=== PATIENT | female | born 2005 | race African-American/Black ===

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

== ENCOUNTER 2024-07-18 20:17 | Emergency (ER) | payer MEDICAID, OTHER ==
[2024-07-18 20:29] VITALS: TEMP 97.2; O2SAT 100
[2024-07-18 21:32] LABS: HCG URINE TEST NEGATIVE (NEGATIVE)
[2024-07-18 21:50] LABS: Absolute Neutrophil Ct (ANC) 6.92 x10^3/uL (1.56-6.13); BASOPHIL % 0.7 % (0.1-1.2); Basophil (Absolute #) 0.06 x10^3/uL (0.01-0.08); Eosinophil % 0.4 % (0.7-5.8); Eosinophil (Absolute #) 0.04 x10^3/uL (0.04-0.36); Hematocrit 38.8 % (34.1-44.9); Hemoglobin 12.8 g/dL (11.2-15.7); IMMATURE GRAN # 0.02 x10^3u/L (0.001-0.031); IMMATURE GRAN % 0.2 % (0.001-0.429); Lymphocytes % 18.6 % (19.3-51.7); Mean Cell Volume 76.8 fL (79.4-94.8); Mean Corpuscular Hemoglobin 25.3 pg (25.6-32.2); Mean Platelet Volume 10.8 fL (9.4-12.3); Monocyte (Absolute #) 0.38 x10^3/uL (0.24-0.86); Monocytes % 4.2 % (4.7-12.5); Neutrophil % 75.9 % (34.0-71.1); Platelet Count 222 x10^3/uL (182-369); Red Blood Count 5.05 x10^6/uL (3.93-5.22); Red Cell Distribution Width 12.6 % (11.7-14.4); White Blood Count 9.1 x10^3/uL (3.98-10.04)
[2024-07-18 21:57] LABS: Appearance Clear (Clear); Bacteria None Seen /HPF (None Seen); Bilirubin Negative (Negative); Blood Negative (Negative); Epithelial Cells Rare /HPF (None Seen); Glucose, Urine Negative (Negative); Ketones 80 (Negative); Leukocyte Esterase Small (Negative); Nitrite Negative (Negative); Ph 5.5 (4.6-8.0); Protein,Urine Dip Negative (Negative); RBC 0-2 /HPF (0-5); Specific Gravity <=1.005 (1.005-1.030); Urobilinogen 0.2 mg/dL (0.2)
[2024-07-18 22:04] LABS: ALBUMIN 4.6 g/dL (3.5-5.0); ANION GAP 21.5 MEQ/L (5-15); BILIRUBIN,TOTAL 1.1 mg/dL (0.2-1.3); Calcium 9.8 mg/dL (8.4-10.2); Creatinine 1 0.58 mg/dL (0.52-1.04); EST GLOMERULAR FILTRATION RATE 132.8 ML/MIN; Potassium 3.6 mmol/L (3.5-5.1); Total Protein 7.4 g/dL (6.3-8.2)
--- NOTE | 2024-07-18 22:36 | ERPHSYRPT ---
- History of Present Illness Time Seen by Provider: 07/18/24 20:30 Source: patient Exam Limitations: no limitations Patient Subjective Stated Complaint: pT. STATES, "I WENT TO THE BATHROOM AND GOT A LITTLE DIZZY, WHEN I STOOD UP I BLACKED OUT." Triage Nursing Assessment: PT. ARRIVES VIA EMS, SHE IS A&OX3, SKIN WARM AND DRY. RESP EVEN UNLABORED, ABLE TO MOVE ALL 4 EXTREMITIES. Physician History: Patient is a 19-year-old female history of type 1 diabetes, BMI of 28 presents to our ED for evaluation of a syncopal episode. Patient was at home. Patient reports she was standing up from the toilet became lightheaded and fell to the ground. Patient states she hit her head on the floor. No neck pain. Cervical spine cleared clinically. The episode was not associated with chest pain or shortness of breath. No nausea vomiting or diaphoresis. Patient denies a history of syncope. Patient reports a history of a murmur as a child and the previously mentioned history of type 1 diabetes and states she is otherwise healthy. Patient voices no other complaints or concerns at this time. Portions of this note were created with voice recognition technology. There may be grammatical, spelling, punctuation or sound alike errors Timing/Duration: today Severity: moderate Modifying Factors: Improves With: nothing Associated Symptoms: denies symptoms Allergies/Adverse Reactions: No Known Drug Allergies Allergy (Verified 12/18/23 08:18) Hx Tetanus, Diphtheria Vaccination/Date Given: No Hx Influenza Vaccination/Date Given: No Hx Pneumococcal Vaccination/Date Given: No Immunizations Up to Date: No Travel Risk - International Travel Have you traveled outside of the country in past 3 weeks: No - Emerging Infectious Disease Are you exhibiting symptoms associated with any current EIDs: No Symptoms: Abdominal Pain - Review of Systems Constitutional: No Symptoms, No Fever, No Chills Eyes: No Symptoms Ears, Nose, & Throat: No Symptoms Respiratory: No Symptoms, No Cough, No Dyspnea Cardiac: No Symptoms, No Chest Pain, No Edema, No Syncope Abdominal/Gastrointestinal: No Symptoms, No Abdominal Pain, No Nausea, No Vomiting, No Diarrhea Genitourinary Symptoms: No Symptoms, No Dysuria Musculoskeletal: No Symptoms, No Back Pain, No Neck Pain Skin: No Symptoms, No Rash Neurological: No Symptoms, No Dizziness, No Focal Weakness, No Sensory Changes Psychological: No Symptoms Endocrine: No Symptoms Hematologic/Lymphatic: No Symptoms Immunological/Allergic: No Symptoms All Other Systems: Reviewed and Negative - Past Medical History Pertinent Past Medical History: Yes Neurological History: No Pertinent History ENT History: No Pertinent History Cardiac History: No Pertinent History Respiratory History: No Pertinent History Endocrine Medical History: No Pertinent History Musculoskeletal History: No Pertinent History GI Medical History: No Pertinent History History: No Pertinent History Psycho-Social History: Attention Deficit Disorder, Bipolar Female Reproductive Disorders: No Pertinent History Other Medical History: DEPRESSION, DM - Past Surgical History Past Surgical History: No Neuro Surgical History: No Pertinent History Cardiac: No Pertinent History Respiratory: No Pertinent History Gastrointestinal: No Pertinent History Genitourinary: No Pertinent History Musculoskeletal: No Pertinent History Female Surgical History: No Pertinent History - Female History Hx Last Menstrual Period: Jul.01 Hx Now: No - Social History Smoking Status: Never smoker Exposure to second hand smoke: No Drug Use: none - Social Determinants of Health Will the patient participate in the screening: Yes Do you worry about a steady place to live?: No Do you have any problems with any of the following?: No known problems In the past 12 months,have you had to go without utilities?: No Transportation Issues: No Has anyone in your support network made you feel unsafe?: No Have you or anyone in your house had to go w/o enough food: No - Nursing Vital Signs Nursing Vital Signs: Initial Vital Signs Temperature 97.2 F 07/18/24 20:22 Pulse Rate 102 H 07/18/24 20:22 Respiratory Rate 18 07/18/24 20:22 Blood Pressure 138/82 07/18/24 20:22 O2 Sat by Pulse Oximetry 100 07/18/24 20:22 Pain Scale Pain Intensity 0 - Physical Exam General Appearance: no apparent distress, alert Eye Exam: PERRL/EOMI, eyes nml inspection Ears, Nose, Throat Exam: normal ENT inspection, TMs normal, pharynx normal, moist mucous membranes Neck Exam: normal inspection, non-tender, supple, full range of motion Respiratory Exam: normal breath sounds, lungs clear, No respiratory distress Cardiovascular Exam: regular rate/rhythm, normal heart sounds, normal peripheral pulses Gastrointestinal/Abdomen Exam: soft, normal bowel sounds, No tenderness, No mass Back Exam: normal inspection, normal range of motion, No CVA tenderness, No vertebral tenderness Extremity Exam: normal inspection, normal range of motion, pelvis stable Neurologic Exam: alert, oriented x 3, cooperative, normal mood/affect, nml cerebellar function, nml station & gait, sensation nml, No motor deficits Skin Exam: normal color, warm, dry, No rash Lymphatic Exam: No adenopathy SpO2 Interpretation: normal SpO2: 100 O2 Delivery: Room Air - Course Nursing assessment & vital signs reviewed: Yes EKG Interpreted by Me: RATE (82), Sinus Rhythm, Right [place] Deviation, NORMAL INTERVALS, NORMAL QRS Ordered Tests: Active Orders 24 hr Category Date Time Status [place] STAT Care 07/18/24 21:11 Active EKG-ER Only STAT Care 07/18/24 21:10 Active IV Insertion STAT Care 07/18/24 21:10 Active Pulse Oximetry (ED) STAT Care 07/18/24 21:10 Active HEAD WITHOUT CONTRAST [CT] Stat Exams 07/19/24 00:42 Completed CBC W DIFF Stat Lab 07/18/24 21:48 Completed CMP Stat Lab 07/18/24 21:48 Completed HCG QUALITATIVE, URINE Stat Lab 07/18/24 21:27 Completed TROPONIN Q4H Lab 07/18/24 21:48 Completed TROPONIN Q4H Lab 07/19/24 00:37 Completed TROPONIN Q4H Lab 07/19/24 03:17 Completed UA W/RFX UR CULTURE Stat Lab 07/18/24 21:17 Completed Holter Monitor ONCE RT 07/19/24 04:11 Active Medication Summary Generic Name Dose Route Start Last Admin Trade Name Freq PRN Reason Stop Dose Admin Sodium Chloride 1,000 mls @ 100 mls/hr 07/18/24 21:15 07/18/24 23:23 Sodium Chloride 0.9% 1000 Ml IV 08/17/24 21:14 100 mls/hr .Q10H LEANDRO Administration Discontinued Medications Generic Name Dose Route Start Last Admin Trade Name Freq PRN Reason Stop Dose Admin Aspirin 324 mg 07/19/24 00:45 07/19/24 00:58 Aspirin 81 Mg Tab.Chew PO 07/19/24 00:46 324 mg STAT ONE Administration Ceftriaxone Sodium 1 gm in 100 mls @ 200 mls/hr 07/18/24 22:48 07/18/24 23:24 Rocephin 1 Gm / 100 Ml Nacl IV 07/18/24 23:17 200 mls/hr STAT ONE 200 mls/hr Administration Ceftriaxone Sodium Confirm 07/18/24 23:19 Rocephin 1 Gm / 100 Ml Nacl Administered 07/18/24 23:20 Dose 1 gm in 100 mls @ ud IV .STK-MED ONE Lab/Rad Data: Laboratory Result Diagrams 07/18/24 21:48 07/18/24 21:48 Laboratory Results 07/19/24 07/19/24 07/18/24 Range/Units 03:17 00:37 21:48 WBC (3.98-10.04) x10^3/uL RBC (3.93-5.22) x10^6/uL Hgb (11.2-15.7) g/dL Hct (34.1-44.9) % MCV (79.4-94.8) fL MCH (25.6-32.2) pg MCHC (32.2-35.5) g/dL RDW (11.7-14.4) % Plt Count (182-369) x10^3/uL MPV (9.4-12.3) fL Gran % (34.0-71.1) % Immature Gran % (Auto) (0.001-0.429) % Nucleat RBC Rel Count (0.00-0.2) % Eos # (Auto) (0.04-0.36) x10^3/uL Immature Gran # (Auto) (0.001-0.031) x10^3u/L Absolute Lymphs (auto) (1.18-3.74) x10^3/uL Absolute Monos (auto) (0.24-0.86) x10^3/uL Absolute Nucleated RBC (0.00-0.012) x10^3u/L Lymphocytes % (19.3-51.7) % Monocytes % (4.7-12.5) % Eosinophils % (0.7-5.8) % Basophils % (0.1-1.2) % Absolute Granulocytes (1.56-6.13) x10^3/uL Basophils # (0.01-0.08) x10^3/uL Sodium (135-145) mmol/L Potassium (3.5-5.1) mmol/L Chloride (98-107) mmol/L Carbon Dioxide (22-30) mmol/L Anion Gap (5-15) MEQ/L BUN (7-17) mg/dL Creatinine (0.52-1.04) mg/dL Estimated GFR ML/MIN Glucose (74-106) mg/dL Calcium (8.4-10.2) mg/dL Total Bilirubin (0.2-1.3) mg/dL AST (14-36) U/L ALT (0-35) U/L Alkaline Phosphatase (38-126) U/L Troponin I < 0.012 0.014 < 0.012 (0.000-0.033) ng/mL Serum Total Protein (6.3-8.2) g/dL Albumin (3.5-5.0) g/dL Urine Color (Yellow) Urine Appearance (Clear) Urine pH (4.6-8.0) Ur Specific [place] (1.005-1.030) Urine Protein (Negative) Urine Glucose (UA) (Negative) mg/dL Urine Ketones (Negative) Urine Blood (Negative) Urine Nitrite (Negative) Urine Bilirubin (Negative) Urine Urobilinogen (0.2) mg/dL Ur Leukocyte Esterase (Negative) U Hyaline Cast (Auto) (0-2) /LPF Urine Microscopic RBC (0-5) /HPF Urine Microscopic WBC (0-5) /HPF Ur Epithelial Cells (None Seen) /HPF Urine Bacteria (None Seen) /HPF Urine Culture Reflexed (NO) Urine HCG, Qual (NEGATIVE) 07/18/24 07/18/24 07/18/24 Range/Units 21:48 21:48 21:27 WBC 9.1 (3.98-10.04) x10^3/uL RBC 5.05 (3.93-5.22) x10^6/uL Hgb 12.8 (11.2-15.7) g/dL Hct 38.8 (34.1-44.9) % MCV 76.8 L (79.4-94.8) fL MCH 25.3 L (25.6-32.2) pg MCHC 33.0 (32.2-35.5) g/dL RDW 12.6 (11.7-14.4) % Plt Count 222 (182-369) x10^3/uL MPV 10.8 (9.4-12.3) fL Gran % 75.9 H (34.0-71.1) % Immature Gran % (Auto) 0.2 (0.001-0.429) % Nucleat RBC Rel Count 0.0 (0.00-0.2) % Eos # (Auto) 0.04 (0.04-0.36) x10^3/uL Immature Gran # (Auto) 0.02 (0.001-0.031) x10^3u/L Absolute Lymphs (auto) 1.70 (1.18-3.74) x10^3/uL Absolute Monos (auto) 0.38 (0.24-0.86) x10^3/uL Absolute Nucleated RBC 0.00 (0.00-0.012) x10^3u/L Lymphocytes % 18.6 L (19.3-51.7) % Monocytes % 4.2 L (4.7-12.5) % Eosinophils % 0.4 L (0.7-5.8) % Basophils % 0.7 (0.1-1.2) % Absolute Granulocytes 6.92 H (1.56-6.13) x10^3/uL Basophils # 0.06 (0.01-0.08) x10^3/uL Sodium 140 (135-145) mmol/L Potassium 3.6 (3.5-5.1) mmol/L Chloride 104 (98-107) mmol/L Carbon Dioxide 17 L (22-30) mmol/L Anion Gap 21.5 H (5-15) MEQ/L BUN 7 (7-17) mg/dL Creatinine 0.58 (0.52-1.04) mg/dL Estimated GFR 132.8 ML/MIN Glucose 95 (74-106) mg/dL Calcium 9.8 (8.4-10.2) mg/dL Total Bilirubin 1.10 (0.2-1.3) mg/dL AST 23 (14-36) U/L ALT 17 (0-35) U/L Alkaline Phosphatase 64 (38-126) U/L Troponin I (0.000-0.033) ng/mL Serum Total Protein 7.4 (6.3-8.2) g/dL Albumin 4.6 (3.5-5.0) g/dL Urine Color (Yellow) Urine Appearance (Clear) Urine pH (4.6-8.0) Ur Specific [place] (1.005-1.030) Urine Protein (Negative) Urine Glucose (UA) (Negative) mg/dL Urine Ketones (Negative) Urine Blood (Negative) Urine Nitrite (Negative) Urine Bilirubin (Negative) Urine Urobilinogen (0.2) mg/dL Ur Leukocyte Esterase (Negative) U Hyaline Cast (Auto) (0-2) /LPF Urine Microscopic RBC (0-5) /HPF Urine Microscopic WBC (0-5) /HPF Ur Epithelial Cells (None Seen) /HPF Urine Bacteria (None Seen) /HPF Urine Culture Reflexed (NO) Urine HCG, Qual NEGATIVE (NEGATIVE) 07/18/24 Range/Units 21:17 WBC (3.98-10.04) x10^3/uL RBC (3.93-5.22) x10^6/uL Hgb (11.2-15.7) g/dL Hct (34.1-44.9) % MCV (79.4-94.8) fL MCH (25.6-32.2) pg MCHC (32.2-35.5) g/dL RDW (11.7-14.4) % Plt Count (182-369) x10^3/uL MPV (9.4-12.3) fL Gran % (34.0-71.1) % Immature Gran % (Auto) (0.001-0.429) % Nucleat RBC Rel Count (0.00-0.2) % Eos # (Auto) (0.04-0.36) x10^3/uL Immature Gran # (Auto) (0.001-0.031) x10^3u/L Absolute Lymphs (auto) (1.18-3.74) x10^3/uL Absolute Monos (auto) (0.24-0.86) x10^3/uL Absolute Nucleated RBC (0.00-0.012) x10^3u/L Lymphocytes % (19.3-51.7) % Monocytes % (4.7-12.5) % Eosinophils % (0.7-5.8) % Basophils % (0.1-1.2) % Absolute Granulocytes (1.56-6.13) x10^3/uL Basophils # (0.01-0.08) x10^3/uL Sodium (135-145) mmol/L Potassium (3.5-5.1) mmol/L Chloride (98-107) mmol/L Carbon Dioxide (22-30) mmol/L Anion Gap (5-15) MEQ/L BUN (7-17) mg/dL Creatinine (0.52-1.04) mg/dL Estimated GFR ML/MIN Glucose (74-106) mg/dL Calcium (8.4-10.2) mg/dL Total Bilirubin (0.2-1.3) mg/dL AST (14-36) U/L ALT (0-35) U/L Alkaline Phosphatase (38-126) U/L Troponin I (0.000-0.033) ng/mL Serum Total Protein (6.3-8.2) g/dL Albumin (3.5-5.0) g/dL Urine Color Yellow (Yellow) Urine Appearance Clear (Clear) Urine pH 5.5 (4.6-8.0) Ur Specific [place] <=1.005 (1.005-1.030) Urine Protein Negative (Negative) Urine Glucose (UA) Negative (Negative) mg/dL Urine Ketones 80 A (Negative) Urine Blood Negative (Negative) Urine Nitrite Negative (Negative) Urine Bilirubin Negative (Negative) Urine Urobilinogen 0.2 (0.2) mg/dL Ur Leukocyte Esterase Small A (Negative) U Hyaline Cast (Auto) 3-5 A (0-2) /LPF Urine Microscopic RBC 0-2 (0-5) /HPF Urine Microscopic WBC 6-10 A (0-5) /HPF Ur Epithelial Cells Rare (None Seen) /HPF Urine Bacteria None Seen (None Seen) /HPF Urine Culture Reflexed NO (NO) Urine HCG, Qual (NEGATIVE) - Progress Progress: improved Progress Note: 19-year-old female presents to emergency department for evaluation of syncope. Patient fell hit her head. No neck pain. Cervical spine cleared clinically. Physical exam otherwise unremarkable. No focal or lateralizing symptoms on neurologic exam. Initial troponin negative. Second troponin slightly elevated as compared to the original troponin however still within normal limits. In light of the uptrending second troponin a third run was completed. Third 1 was negative as well. CT head negative for acute intracranial pathology. EKG normal sinus rhythm. UA significant for urinary tract infection. Patient received Rocephin IV piggyback. Prescription for Keflex forwarded to patient's pharmacy. Patient reassessed. She remained asymptomatic. Holter monitor ordered. Instructions provided. Patient reassessed. Patient states she is feeling well. No dizziness no headache no weakness no near syncopal episodes. No indication for further workup at this time. We will discharge patient home with a Holter monitor. Patient agrees to follow-up with her primary care doctor within 48 hours for reevaluation. Patient voices no other complaints or concerns at this time. Portions of this note were created with voice recognition technology. There may be grammatical, spelling, punctuation or sound alike errors Complexity of problem addressed is moderate acute complicated. No critical care time. Complexity of data reviewed and analyzed is moderate. Test ordered chest reviewed results analyzed and correlated clinically with history and physical exam. Risk of complication and or risk of morbidity/mortality of patient management is moderate. Prescription for Keflex forwarded to patient's pharmacy. Vital stable. Time spent to discharge patient is approximately 20 minutes. Plan of care established for shared decision making. No social determinants of health present to impede follow-up. Portions of this note were created with voice recognition technology. There may be grammatical, spelling, punctuation or sound alike errors 07/19/24 04:19 Counseled pt/family regarding: lab results, diagnosis, need for follow-up, rad results - Departure Departure Disposition: Home Clinical Impression: UTI (urinary tract infection), Syncope Condition: Stable Critical Care Time: No Referrals: DANGELO JARQUIN FNP [Primary Care Provider] - Follow up/PCP as directed Prescriptions: Cephalexin Mh 500 mg [Keflex 500 mg] 500 mg PO TID 7 Days #21 cap Outpatient Orders: Holter Monitor Facility: [facility]. Hosp, Location: RESPIRATORY THERAPY
[2024-07-18] MEDS ORDERED: Sodium Chloride 0.9% 1000 ML 1,000 ML ONE (23:10)
[2024-07-18] MEDS ORDERED: ROCEPHIN 1 GM / 100 ML NaCl 1 GM/100 ML IVPB IV ONE (23:19)
[2024-07-18] MEDS: Sodium Chloride 0.9% 1000 ML 1,000 ML IV SCH (23:23)
[2024-07-18] MEDS: ROCEPHIN 1 GM / 100 ML NaCl 1 GM/100 ML IVPB IV ONE (23:24)
[2024-07-19] MEDS: BABY ASPIRIN 81 MG CHEW PO ONE (00:58)
--- NOTE | 2024-07-19 01:31 | XRAY ---
CLINICAL HISTORY: fall COMPARISON: none TECHNIQUE: Multiple axial images are obtained from the skull base to the vertex without contrast. CT scan was performed according to ALARA (as low as reasonably achievable). FINDINGS: The brain shows normal morphology, attenuation, and volume for age. No evidence of space occupying lesion, hemorrhage, edema, mass effect, midline shift, extra axial collection, or hydrocephalus is noted. Ventricles, sulci, and basal cisterns are symmetric and normal in size and configuration. The álvarez-white matter differentiation is preserved. Visualized paranasal sinuses and mastoid air cells are well aerated. Orbital contents are within normal limits. Bony structures are intact. Small focal dural calcifica focus in right superior frontal region. IMPRESSION: 1. No evidence of acute intracranial abnormality is demonstrated Electronically Signed by: Jarocho Resendiz MD. (07/19/2024 01:27:12 EST)
[2024-07-19 04:20] VITALS: PULSE 77; RESP 20
[2024-07-19 04:23] VITALS: BP 138/84
== END 2024-07-19 04:42 | disposition home or self-care (01) ==
LOC: ED 20:17
DX: N39.0 Urinary tract infection, site not specified (principal); R55 Syncope and collapse; E10.9 Type 1 diabetes mellitus without complications; Z79.899 Other long term (current) drug therapy
CPT/HCPCS: 36415; 70450; 80053; 81001; 81025; 84484; 85025; 93005; 93041; 94760; 96374; 96375; 99285; J0696; A9270-GY